=== PATIENT | female | born 2000 ===

== ENCOUNTER 2024-07-08 06:45 | Day surgery (SDC) | payer OTHER ==
[2024-07-08] MEDS ORDERED: POVIDONE-IODINE 118 ML BOTT TOP ONE ×3 (11:38→12:15)
[2024-07-08] MEDS ORDERED: LIDOCAINE HCL 1%/EPINEPHRINE 20ML VIAL IJ ONE ×2 (11:38→12:15)
[2024-07-08] MEDS ORDERED: BUPIVACAINE HCL/Mpf 0.5% 10ML VIAL ONE (11:38)
[2024-07-08] MEDS ORDERED: BUPIVACAINE HCL 30 ML VIAL IJ ONE (12:00)
[2024-07-08] MEDS ORDERED: IBU600 MG PO (12:52)
== END 2024-07-08 17:50 | disposition home or self-care (01) ==
LOC: CIR.AMB 06:45
PROVIDERS: ATTEND Obstetrics & Gynecology Gynecology
DX: T19.3XXA Foreign body in uterus, initial encounter (principal)